=== PATIENT | male | born 1970 | race Hispanic/Latino ===

== ENCOUNTER 2021-10-21 11:22 | Emergency (ER) | payer BC ==
--- NOTE | 2021-10-21 11:35 | Emergency Department Report ---
ED General Adult HPI - General Chief complaint: Neuro Symptoms/Deficit Stated complaint: NUMBNESS IN THE RIGHT ARM Time Seen by Provider: 10/21/21 11:30 Source: patient Mode of arrival: Ambulatory Limitations: No Limitations - History of Present Illness Initial comments: 51-year-old male with a past medical history of hyperlipidemia (but not compliant with meds) and tobacco use presents to the ER today with complaints of weakness to his right wrist and hand. Patient states that he noticed it around 4 AM this morning after he finished working on the computer. He states that he had been working on the computer for for a few hours. He states that he was using an ergonomic mouse pad which has a wrist pad while he was working on a computer. He states that he soon as he finished working on the computer and try to use his hand he noticed that he could not move his wrist no his fingers. 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 He reports numbness and some tingling to his wrist and fingers. He states that he has had some numbness to his left forearm for about 2 months, but this has not gotten worse since this morning nor does he have any weakness to his forearm or upper arm. He states that he has had pinched nerve in his neck in the past, but he states that he has not had any neck pain recently. He denies any facial weakness, vision changes, lower extremity weakness or numbness, speech changes, headache, dizziness, chest pain, shortness of breath or any other associated symptoms. MD Complaint: Weakness right hand/wrist -: This morning (4am today ) - Related Data Previous Rx's Medication Instructions Recorded Last Taken Type methylPREDNISolone [Medrol 4MG 4 mg PO DAILY #1 pack 10/21/21 Unknown Rx DOSEPAK (21 tabs)] Allergies Allergy/AdvReac Type Severity Reaction Status Date / Time Sulfa (Sulfonamide Allergy Unknown Verified 10/21/21 11:29 Antibiotics) ED Review of Systems ROS: Stated complaint: NUMBNESS IN THE RIGHT ARM Other details as noted in HPI Comment: All other systems reviewed and negative Constitutional: denies: chills, fever Eyes: denies: eye pain, eye discharge, vision change ENT: denies: ear pain, throat pain Respiratory: denies: cough, shortness of breath, SOB with exertion, SOB at rest, wheezing Cardiovascular: denies: chest pain, palpitations, dyspnea on exertion, edema, syncope, paroxysmal nocturnal dyspnea, other Endocrine: no symptoms reported Gastrointestinal: denies: abdominal pain, nausea, diarrhea, constipation, hematemesis, melena, hematochezia Genitourinary: denies: urgency, dysuria Musculoskeletal: denies: back pain, joint swelling, arthralgia Skin: denies: rash, lesions Neurological: weakness (Right-handed and wrist), numbness, paresthesias. denies: confusion, abnormal gait, vertigo Psychiatric: denies: anxiety, depression, auditory hallucinations, visual hallucinations, homicidal thoughts, suicidal thoughts Hematological/Lymphatic: denies: easy bleeding, easy bruising, swollen glands ED Past Medical Hx - Past Medical History Additional medical history: HLD - Surgical History Past Surgical History?: Yes Additional Surgical History: APPENDECTOMY - Medications Home Medications: Home Medications Medication Instructions Recorded Confirmed Last Taken Type methylPREDNISolone [Medrol 4MG 4 mg PO DAILY #1 pack 10/21/21 Unknown Rx DOSEPAK (21 tabs)] ED Physical Exam - General Limitations: No Limitations General appearance: alert, in no apparent distress - Head Head exam: Present: atraumatic, normocephalic, normal inspection - Eye Eye exam: Present: normal appearance, PERRL, EOMI Pupils: Present: normal accommodation - ENT ENT exam: Present: normal exam, mucous membranes moist - Neck Neck exam: Present: normal inspection, full ROM. Absent: meningismus - Respiratory Respiratory exam: Present: normal lung sounds bilaterally. Absent: respiratory distress, wheezes, rales, rhonchi, stridor - Cardiovascular Cardiovascular Exam: Present: regular rate, normal rhythm, normal heart sounds - Neurological Exam Neurological exam: Present: alert, oriented X3, CN II-XII intact, normal gait, motor sensory deficit (Right wrist and hand held in flexion. Extension of the right hand and wrist moderately decreased; moderate decrease in abduction of the fingers of the right hand. Strength and sensation normal in the right upper extremity forearm and upper arm), other (Mild decrease sensation over the right hand and wrist when compared to the left hand and wrist.) - Psychiatric Psychiatric exam: Present: normal affect, normal mood - Skin Skin exam: Present: intact ED Course Vital Signs 10/21/21 10/21/21 11:25 13:36 Temperature 97.7 F 98.5 F Pulse Rate 79 80 Respiratory 18 16 Rate Blood Pressure 145/96 Blood Pressure 125/86 [Right] O2 Sat by Pulse 97 100 Oximetry ED Medical Decision Making - Radiology Data Radiology results: report reviewed Patient: DOMENIC RAMIREZ MR#: [id number] : 1970 Acct:[id number] Age/Sex: 51 / M ADM Date: 10/21/21 Loc: ED Attending Dr: Ordering Physician: JESÚS PIERRE MD Date of Service: 10/21/21 Procedure(s): CT head/brain wo con Accession Number(s): [id number] cc: JESÚS PIERRE MD CT head/brain wo con INDICATION / CLINICAL INFORMATION: 51 years Male; r arm weakness/numbness. TECHNIQUE: Routine CT head without contrast. All CT scans at this location are performed using CT dose reduction for ALARA by means of automated exposure control. COMPARISON: None. FINDINGS: BRAIN / INTRACRANIAL CONTENTS: No acute hemorrhage, mass effect, midline shift, hydrocephalus, or acute, large territorial infarct. No signs of significant atrophy or chronic infarct. No significant white matter abnormality seen. CRANIOCERVICAL JUNCTION: No significant abnormality. ORBITS: No significant abnormality of visualized orbits. SINUSES / MASTOIDS: Visualized paranasal sinuses and mastoid air cells are essentially clear. ADDITIONAL FINDINGS: None. IMPRESSION: 1. No focal mass, hemorrhage, hydrocephalus, or acute, large territorial infarct. Signer Name: Christiano Corral MD, III Signed: 10/21/2021 12:48 PM Workstation Name: [id number] Transcribed By: HR Dictated By: Christiano Corral MD Electronically Authenticated By: Christiano Corral MD Signed Date/Time: 10/21/21 1248 DD/ 1247 TD/TT: - Medical Decision Making CT head negative for anything acute. Patient history and physical concerning for a wrist drop probably more so from either a radial nerve neuropathy or it could even be from a cervical radiculopathy. He is otherwise neurologically intact with no other complaints. His vital signs are stable. patient was also seen and evaluated by Dr. Pierre, see his note for further details. Very low suspicion that this is related to stroke requiring admission, neurology consult. Discussed results with patient. He'll be placed in a wrist splint. He'll be given referral to orthospine. He understands to return if his symptoms worsens or if he develops additional symptoms such as complete focal weakness in his upper extremity, lower legs, slurred speech, vision change or any additional symptoms. Patient was stable at time of discharge. Critical care attestation.: If time is entered above; I have spent that time in minutes in the direct care of this critically ill patient, excluding procedure time. ED Disposition Clinical Impression: Wrist drop, right wrist Disposition: 01 HOME / SELF CARE / HOMELESS Is pt being admited?: No Does the pt Need Aspirin: No Condition: Stable Instructions: Radial Nerve Palsy, Cervical Radiculopathy, [id number] Additional Instructions: Recommend that you use the wrist splint as discussed. Take the Medrol Dosepak as prescribed. Follow-up with Ortho speech and language specialist and or PCP given to you at discharge next week. Return to the ER if at any point your symptoms worsens or he develop additional symptoms with it. Prescriptions: methylPREDNISolone [Medrol 4MG DOSEPAK (21 tabs)] 4 mg PO DAILY #1 pack Referrals: AVRIL MUÑOZ MD [Primary Care Provider] - 3-5 Days Forms: Work/School Release Form(ED) Time of Disposition: 12:57
--- NOTE | 2021-10-21 12:09 | Event Note ---
Date of service: 10/21/21 Face to Face: For this encounter I have reviewed the PA/SOFTWARE DEVELOPER INTERN documentation, treatment plan, medical decision making, and I had face to face time with this patient. Patient presented with right hand numbness and weakness. His symptoms actually started 2 months ago and progressively worsened. He had numbness at that point. He noticed that he was having weakness in the right hand this morning. He has no fevers and chills. 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 He initially thought that he was having problems related to age. He decided he should be seen for this. Patient has had problems with neuropathy before. He has never had a stroke before. He does not have any facial asymmetry. There is not any right leg weakness. There is no speech change. On exam, patient does have evidence of a weakness involving the wrist extension. Wrist flexion is intact. Lumbrical strength as far as hand grasp is also weak. Biceps and triceps strength is intact. Patient underwent CT which I suspect will be unremarkable. I do not clinically believe this represents stroke. I believe clinically this is a peripheral neuropathy and outpatient follow-up would be appropriate.
--- NOTE | 2021-10-21 12:53 | Cat Scan Report ---
CT head/brain wo con INDICATION / CLINICAL INFORMATION: 51 years Male; r arm weakness/numbness. TECHNIQUE: Routine CT head without contrast. All CT scans at this location are performed using CT dos e reduction for ALARA by means of automated exposure control. COMPARISON: None. FINDINGS: BRAIN / INTRACRANIAL CONTENTS: No acute hemorrhage, mass effect, midline shift, hydrocephalus, or acu te, large territorial infarct. No signs of significant atrophy or chronic infarct. No significant whi te matter abnormality seen. CRANIOCERVICAL JUNCTION: No significant abnormality. ORBITS: No significant abnormality of visualized orbits. SINUSES / MASTOIDS: Visualized paranasal sinuses and mastoid air cells are essentially clear. ADDITIONAL FINDINGS: None. IMPRESSION: 1. No focal mass, hemorrhage, hydrocephalus, or acute, large territorial infarct. Signer Name: Christiano Corral MD, III Signed: 10/21/2021 12:48 PM Workstation Name: [id number]
[2021-10-21 13:48] VITALS: BP 125/86
== END 2021-10-21 13:48 | disposition home or self-care (01) ==
LOC: ED 11:22
DX: M21.331 Wrist drop, right wrist (principal); Z90.49 Acquired absence of other specified parts of digestive tract; Z88.1 Allergy status to other antibiotic agents
CPT/HCPCS: 70450; 99283